=== PATIENT | male | born 1990 | race American Indian/Alaskan Native ===

== ENCOUNTER 2022-05-01 06:40 | Emergency (ER) | payer SELFPAY ==
[2022-05-01 06:53] VITALS: BP 143/75
--- NOTE | 2022-05-01 08:31 | XRay Report ---
Abdomen 2 views INDICATION: Abdominal pain IMPRESSION: Nonobstructive bowel gas pattern. No free air. Signer Name: Jamarcus Louis MD Signed: 05/01/2022 8:27 AM Workstation Name: [email or web address]
[2022-05-01 09:15] LABS: BUN/Creatinine Ratio 13; Blood Urea Nitrogen 16 mg/dL (9-20); Calcium 9.5 mg/dL (8.4-10.2); Hemolysis Index 8
[2022-05-01 09:20] LABS: Basophils % (Auto) 0.6 % (0.0-1.8); Hematocrit 49.6 % (35.5-45.6); Hemoglobin 16.7 gm/dl (11.8-15.2); Lymphocytes # (Auto) 0.4 K/mm3 (1.2-5.4); Lymphocytes % (Auto) 7.6 % (13.4-35.0); Mean Corpuscular HGB Conc 34 % (32-34); Mean Corpuscular Volume 101 fl (84-94); Monocytes # (Auto) 0.7 K/mm3 (0.0-0.8); Monocytes % (Auto) 11.9 % (0.0-7.3); Platelet Count 189 K/mm3 (140-440); Red Blood Count 4.92 M/mm3 (3.65-5.03); Red Cell Distribution Width 13.3 % (13.2-15.2)
--- NOTE | 2022-05-01 10:43 | Electrocardiograph Report ---
[facility] Test Date: 2022-05-01 Test Time: 06:48:34 Pat Name: MODESTO TAYLOR Department: Room: Gender: M [employer] Worker: SOHAM : 1990 Requested By: ED DOC Order Number: [id number] Reading MD: Billy Farmer Measurements Intervals [place] Rate: 77 P: 90 ID: [id number] QRS: 72 QRSD: 91 T: 56 QT: 359 QTc: 408 Interpretive Statements Sinus rhythm Right atrial enlargement Borderline ST elevation, anterior leads No previous ECG available for comparison Electronically Signed On 05-01-2022 10:43:02 EDT by Billy Farmer
== END 2022-05-01 16:27 | disposition left against medical advice (07) ==
LOC: ED 06:40
DX: R06.00 Dyspnea, unspecified (principal); Z53.21 Procedure and treatment not carried out due to patient leaving prior to being seen by health care provider
CPT/HCPCS: 36415; 74019; 80048; 85025; 93005

== ENCOUNTER 2022-05-14 04:19 | Emergency (ER) | payer SELFPAY ==
--- NOTE | 2022-05-14 06:08 | Cat Scan Report ---
. CT HEAD WITHOUT CONTRAST INDICATION / CLINICAL INFORMATION: APHASIA. TECHNIQUE: All CT scans at this location are performed using CT dose reduction for ALARA by means of automated e xposure control. COMPARISON: None available. FINDINGS: No acute intracranial hemorrhage. Ventricles are normal in size without midline shift or mass effect. No extra-axial fluid collection is seen. Sinuses are clear. Visualized sella is normal. Orbits are u nremarkable. ADDITIONAL FINDINGS: None. IMPRESSION: 1. No acute intracranial abnormality. Signer Name: Garcia Plummer MD Signed: 05/14/2022 6:04 AM Workstation Name: [id number]
--- NOTE | 2022-05-14 10:18 | Emergency Department Report ---
ED General Adult HPI - General Chief complaint: Dyspnea/Respdistress Stated complaint: CONFUSED Time Seen by Provider: 05/14/22 09:25 Source: patient Mode of arrival: Ambulatory Limitations: No Limitations - History of Present Illness Initial comments: 31-year-old male with no significant past medical history reports to the ER after work due to speech problem. Patient reports while he was talking to a coworker it was hard for him to get certain words out. Patient reports no usage of drugs. Patient reports no headache, no dizziness, no numbness, no tingling and no weakness. Patient reports he is slightly tired but gets adequate rest. Patient has no slurred speech during this initial examination. Patient reports no other acute signs or symptoms at this time. - Related Data Allergies Allergy/AdvReac Type Severity Reaction Status Date / Time No Known Allergies Allergy Unverified 05/01/22 06:53 ED Review of Systems ROS: Stated complaint: CONFUSED Other details as noted in HPI Comment: All other systems reviewed and negative Neurological: other (Unable to to get certain words out.). denies: headache, weakness, numbness, paresthesias ED Past Medical Hx - Past Medical History Previous Medical History?: No - Social History Smoking Status: Unknown if ever smoked ED Physical Exam - General Limitations: No Limitations General appearance: alert, in no apparent distress - Head Head exam: Present: atraumatic, normocephalic - Eye Eye exam: Present: normal appearance - ENT ENT exam: Present: mucous membranes moist - Neck Neck exam: Present: normal inspection - Respiratory Respiratory exam: Present: normal lung sounds bilaterally. Absent: respiratory distress - Cardiovascular Cardiovascular Exam: Present: regular rate, normal rhythm. Absent: systolic murmur, diastolic murmur, rubs, gallop - GI/Abdominal GI/Abdominal exam: Present: soft, normal bowel sounds - Rectal Rectal exam: Present: deferred - Extremities Exam Extremities exam: Present: normal inspection - Back Exam Back exam: Present: normal inspection - Neurological Exam Neurological exam: Present: alert, oriented X3 - Expanded Neurological Exam Expanded Patient oriented to: Present: person, place, time Speech: Present: fluid speech Cranial nerves: EOM's Intact: Normal, Gag Reflex: Normal, Facial Sensation: Normal Cerebellar function: Finger to Nose: Normal Upper motor neuron: Pronator Drift: Normal Sensory exam: Upper Extremity Light Touch: Normal, Lower Extremity Light Touch: Normal Motor strength exam: RUE: 5, LUE: 5, RLE: 5, LLE: 5 Best Eye Response (Joan): (4) open spontaneously Best Motor Response (Pennock): (6) obeys commands Best Verbal Response (P[place]ock): (5) oriented [place] Total: 15 - Psychiatric Psychiatric exam: Present: normal affect, normal mood - Skin Skin exam: Present: warm, dry, intact, normal color. Absent: rash ED Course Vital Signs 05/14/22 05/14/22 04:22 10:44 Temperature 97.4 F L 98.7 F Pulse Rate 112 H 82 Respiratory 18 14 Rate Blood Pressure 131/77 Blood Pressure 130/66 [Right] O2 Sat by Pulse 99 100 Oximetry ED Medical Decision Making - Radiology Data Radiology results: [place] [address] Cat Scan Report Signed Patient: MODESTO TAYLOR MR#: [id number] 8 : 1990 Acct:[id number] Age/Sex: 31 / M ADM Date: 05/14/22 Loc: ED Attending Dr: Ordering Physician: MARY BETH TEIXEIRA MD Date of Service: 05/14/22 Procedure(s): CT head/brain wo con Accession Number(s): [id number] cc: ED MD LLUVIA . CT HEAD WITHOUT CONTRAST INDICATION / CLINICAL INFORMATION: APHASIA. TECHNIQUE: All CT scans at this location are performed using CT dose reduction for ALARA by means of automated exposure control. COMPARISON: None available. FINDINGS: No acute intracranial hemorrhage. Ventricles are normal in size without midline shift or mass effect. No extra-axial fluid collection is seen. Sinuses are clear. Visualized sella is normal. Orbits are unremarkable. ADDITIONAL FINDINGS: None. IMPRESSION: 1. No acute intracranial abnormality. Signer Name: Garcia Braga MD Signed: 05/14/2022 6:04 AM Workstation Name: [id number] Transcribed By: CW Dictated By: ELAINA BRAGA MD Electronically Authenticated By: ELAINA BRAGA MD Signed Date/Time: 05/14/22603 DD/ 2 TD/TT: - Medical Decision Making 31-year-old male reports to the ER with complaints of unable to say certain words. Patient reports heart words with heart from to say at times while having a conversation with coworker that she reported to the ER. Patient denies any headaches, dizziness, weakness, slurred speech. On physical exam patient is in no acute distress. Patient is neurologically intact. No acute findings on neurological exam. CT of head is negative. No further work-up is needed at this time. Patient informed to follow-up primary care services. Patient agrees with plan of care and verbalized understanding. Vital Signs 05/14/22 04:22 Temperature 97.4 F L Pulse Rate 112 H Respiratory 18 Rate Blood Pressure 131/77 O2 Sat by Pulse 99 Oximetry Vital Signs 05/14/22 05/14/22 04:22 10:44 Temperature 97.4 F L 98.7 F Pulse Rate 112 H 82 Respiratory 18 14 Rate Blood Pressure 131/77 Blood Pressure 130/66 [Right] O2 Sat by Pulse 99 100 Oximetry Critical care attestation.: If time is entered above; I have spent that time in minutes in the direct care of this critically ill patient, excluding procedure time. ED Disposition Clinical Impression: Speaking difficulty Disposition: 01 HOME / SELF CARE / HOMELESS Is pt being admited?: No Condition: Stable Referrals: [facility] [place] [Outside] - 3-5 Days [facility] [Outside] - 3-5 Days [facility] [Outside] - 3-5 Days Time of Disposition: 10:19
[2022-05-14 10:45] VITALS: BP 130/66
== END 2022-05-14 10:45 | disposition home or self-care (01) ==
LOC: ED 04:19
DX: R47.9 Unspecified speech disturbances (principal)
CPT/HCPCS: 70450; 99283